=== PATIENT | female | born 2000 | race Caucasian/White ===

== ENCOUNTER 2021-05-26 07:30 | Emergency (ER) | payer OTHER ==
[~2021-05-26] VITALS: Ht 165.1 cm; Wt 68.0 kg
[2021-05-26] MEDS ORDERED: SERAQUEL (08:09)
[2021-05-26] MEDS ORDERED: ZOFRAN8 MG PO (15:39)
[2021-05-26] MEDS ORDERED: PEPCID AC20 MG PO (15:39)
== END 2021-05-26 15:55 | disposition home or self-care (01) ==
LOC: ER 07:30 → EMR PED 08:03
DX: F10.129 Alcohol abuse with intoxication, unspecified (principal); E86.0 Dehydration; E87.8 Other disorders of electrolyte and fluid balance, not elsewhere classified; Y90.9 Presence of alcohol in blood, level not specified